=== PATIENT | male | born 1930 | race Caucasian/White ===

== ENCOUNTER 2020-06-22 18:40 | Emergency (ER) | payer OTHER, MEDICARE ==
[~2020-06-22] VITALS: Ht 175.3 cm; Wt 74.4 kg
[~2020-06-22 18:40] MED LIST: ACET500; AMLO5 PO; ASPI325 PO; ATEN100 PO; ATOR20 PO; Colace250 MG PO; FERR325 PO; FURO40 PO; Hair, Skin & N1 EACH PO; INS70/30I SC; INSULIN SYRING1 EAC1; LAVAP17G PO; LEVO750 PO; LEVSOD100 PO; LORA10 PO; METF500C PO; METR250 PO; MULVITB PO; OMEP20ER PO; POTCHL10ER PO; PREG150 PO; SENN187 PO; TRAM50 PO; VITAMIN C500 MG PO; ZESTRIL40 MG PO
[2020-06-22] MEDS ORDERED: METO25 PO (19:03)
[2020-06-22] MEDS ORDERED: STRIVERDI RESPIM4 G1 (19:04)
[2020-06-22] MEDS ORDERED: OXYB5 PO (19:05)
[2020-06-22 19:42] LABS: BASOPHILS ABSOLUTE AUTO 0.03 K/mm3 (0.00-0.23); BASOPHILS PERCENT AUTO 0 % (0-2); EOSINOPHILS ABSOLUTE AUTO 0.09 K/mm3 (0.00-0.68); EOSINOPHILS PERCENT AUTO 1 % (0-6); Hemoglobin 13.4 g/dL (13.5-17.5); IMMATURE GRAN ABSOLUTE AUTO 0.04 K/mm3 (0.00-0.10); IMMATURE GRAN PERCENT AUTO 0 % (0-1); LYMPHOCYTES ABSOLUTE AUTO 1.13 K/mm3 (0.84-5.20); LYMPHOCYTES PERCENT AUTO 11 % (21-46); MONOCYTES ABSOLUTE AUTO 1.02 K/mm3 (0.16-1.47); MONOCYTES PERCENT AUTO 10 % (4-13); Mean Corpuscular HGB 30.9 pg (26.0-34.0); Mean Corpuscular HGB Conc 33.5 g/dL (31.5-36.5); Mean Corpuscular Volume 92 fL (80-100); Mean Platelet Volume 9.7 fL (9.1-12.4); NEUTROPHILS ABSOLUTE AUTO 7.85 K/mm3 (1.96-9.15); NEUTROPHILS PERCENT AUTO 77 % (41-73); Platelet Count 221 K/mm3 (150-400); RDW Coefficient Variation 13.2 % (11.7-14.2); RDW Standard Deviation 44.7 fL (35.1-46.3); Red Blood Cell Count 4.34 M/mm3 (4.30-5.90); White Blood Cell Count 10.16 K/mm3 (4.00-11.30)
[2020-06-22 19:48] LABS: Anion Gap 5 mmol/L (6-16); Blood Urea Nitrogen 60 mg/dL (8-24); Bun/Creatinine Ratio 64.3 (12.0-20.0); CO2, Blood 25 mmol/L (21-32); Calcium, Blood 10.2 mg/dL (8.5-10.1); Chloride, Blood 110 mmol/L (98-108); Creatinine, Blood 0.93 mg/dL (0.60-1.20); Glomerular Filtration Rate >60 (60-); Glucose, Blood 274 mg/dL (70-99); Sodium, Blood 140 mmol/L (136-145)
[2020-06-22] MEDS ORDERED: AMOCLA875 PO (21:44)
== END 2020-06-22 21:56 | disposition home or self-care (01) ==
LOC: ER 18:40
PROVIDERS: Student in an Organized Health Care Education/Training Program
DX: K11.20 Sialoadenitis, unspecified (principal); E11.40 Type 2 diabetes mellitus with diabetic neuropathy, unspecified; E03.9 Hypothyroidism, unspecified; I11.0 Hypertensive heart disease with heart failure; I50.9 Heart failure, unspecified; Z88.8 Allergy status to other drugs, medicaments and biological substances; Z79.84 Long term (current) use of oral hypoglycemic drugs; Z79.899 Other long term (current) drug therapy
CPT/HCPCS: 70487; 80048; 83605; 85025; 93005; 93010; 99285-25; J7120; Q9967